=== PATIENT | female | born 1975 | race Caucasian/White ===

== ENCOUNTER 2019-12-26 17:08 | Emergency (ER) | payer SELFPAY ==
[~2019-12-26] VITALS: Ht 172.7 cm; Wt 90.7 kg
--- NOTE | 2019-12-26 17:10 | NUR ---
PT BROUGHT DIRECTLY TO ROOM 1B, STAT EKG DONE AND HANDED TO .
[2019-12-26] MEDS ORDERED: DILTIAZEM HCL 25 MG IV IV ONE (17:15)
[2019-12-26] MEDS ORDERED: DILTIAZEM HCL 25 MG IV ONE (17:17)
--- NOTE | 2019-12-26 17:20 | NUR ---
Patient ambulated with stable gait. Speech is clear, speaks in complete sentences. A/Ox3. No acute neuro deficits. Patient came for c/o CP and palpitations since roughly 30min-1hr [employer].
--- NOTE | 2019-12-26 17:20 | NUR ---
Spoke to Pt's family(Silva @ [phone]) per pt's request.
[2019-12-26 17:28] LABS: BASOPHILS # (AUTO) 0.1 K/uL (0.0-8.0); BASOPHILS % (AUTO) 0.8 % (0.0-2.0); EOSINOPHILS # (AUTO) 0.2 K/uL (0.0-0.7); EOSINOPHILS % (AUTO) 1.4 % (0.0-7.0); HEMATOCRIT 42.8 % (31.2-41.9); HEMOGLOBIN 14.3 g/dL (10.9-14.3); LYMPHOCYTES # (AUTO) 3.6 K/uL (20.0-40.0); MEAN CORPUSCULAR HEMOGLOBIN 28.7 uug (24.7-32.8); MEAN CORPUSCULAR HGB CONC 34 g/dL (32.3-35.6); MEAN CORPUSCULAR VOLUME 85.9 fL (75.5-95.3); MONOCYTES # (AUTO) 0.9 K/uL (2.0-10.0); MONOCYTES % (AUTO) 7.4 % (0.0-11.0); NEUTROPHILS # (AUTO) 7.2 K/uL (1.8-8.9); NEUTROPHILS % (AUTO) 60.4 % (38.5-71.5); PLATELET COUNT (AUTO) 471 K/uL (179-408); RED BLOOD CELL COUNT(AUTO) 4.99 MIL/uL (3.63-4.92)
[2019-12-26] MEDS ORDERED: IV NORMAL SALINE 1000 ML BAG IV ONE (17:30)
[2019-12-26 17:34] LABS: CARBON DIOXIDE 25 mmol/L (21-32); CHLORIDE 103 mmol/L (98-107); GLUCOSE 87 mg/dL (74-106); POTASSIUM 3.5 mmol/L (3.5-5.1); UREA NITROGEN, BLOOD 15 mg/dL (7-18)
[2019-12-26 17:47] LABS: ALANINE AMINOTRANSFERASE 38 U/L (14-59); ALKALINE PHOSPHATASE 37 U/L (50-136); ASPARTATE AMINOTRANSFERASE 16 U/L (15-37); BILIRUBIN,DIRECT < 0.1 mg/dL (0.0-0.2); BILIRUBIN,TOTAL 0.2 mg/dL (0.2-1.0); TOTAL PROTEIN, SERUM 8.5 g/dL (6.4-8.2)
--- NOTE | 2019-12-26 18:12 | NUR ---
IV removed. Catheter intact and site benign. Pressure and 4x4 gauze applied to site. No bleeding noted. Patient discharged to home in stable conditon. Written and verbal after care instructions given. Patient verbalizes understanding of instructions. Patient ambulated with stable gait.
[2019-12-26 18:13] VITALS: BP 122/73
== END 2019-12-26 18:27 | disposition home or self-care (01) ==
LOC: ER 17:08
DX: I47.1 Supraventricular tachycardia (principal)
CPT/HCPCS: 36415; 71045; 80048; 80076; 83880; 84484; 85025; 85730; 93005 ×2; 96374; 99285; J3490; 70030-TC; A4663; J7030